=== PATIENT | male | born 1950 | race Caucasian/White ===

== ENCOUNTER → 2020-05-31 | Outpatient (CLI) | payer OTHER ==
--- NOTE | 2020-06-01 11:52 | SLEEP ---
DATE OF STUDY: 05/31/2020 OBJECTIVE: The patient is a 69-year-old male previously diagnosed with sleep apnea who needs a new CPAP machine. Height 73 inches, weight 185 pounds. [place] sleep score 2 (on treatment). INTERPRETATION: A total of 263 respiratory events are recorded, mostly obstructive apneas for an apnea-hypopnea index of 31.3 events per hour of sleep. Minimum oxygen saturation is 80%. There are no significant cardiac arrhythmias. IMPRESSION: Abnormal home polysomnogram re-demonstrating the severe obstructive sleep apnea. RECOMMENDATIONS: We will arrange for the patient to get a new CPAP machine. The patient will follow up with me in the office as previously scheduled. Thank you for letting us help with the patient's care. JOANA AMARO MD DR: DAX/chip JOB#: [id number] / [id number] TOMA Ashley MD
== END ==
LOC: RT 08:40
PROVIDERS: ATTEND Psychiatry & Neurology Neurology with Special Qualifications in Child Neurology
DX: G47.33 Obstructive sleep apnea (adult) (pediatric) (principal)
CPT/HCPCS: G0399